=== PATIENT | male | born 1985 | race Caucasian/White ===

== ENCOUNTER 2017-05-22 07:10 | Emergency (ER) | payer MEDICAID, MEDICARE ==
[2017-05-22] MEDS ORDERED: NORMAL SALINE 1000 ML 1,000 ML IV ONE (07:36)
--- NOTE | 2017-05-22 07:42 | ER Document Report ---
ED GI/ - General Chief Complaint: Palpitations Stated Complaint: HEART RATE CONCERN Time Seen by Provider: 05/22/17 07:26 TRAVEL OUTSIDE OF THE [place] IN LAST 30 DAYS: No - Related Data Allergies/Adverse Reactions: Penicillins Allergy (Severe, Verified 07/03/15 11:32) Past Medical History - Social History Family History: Other Pulmonary Medical History: Reports: Hx Asthma Psychiatric Medical History: Reports: Hx Bipolar Disorder, Hx Schizophrenia - Immunizations Hx Diphtheria, Pertussis, Tetanus Vaccination: - known
--- NOTE | 2017-05-22 07:43 | ER Document Report ---
ED Psych Disorder / Suicide - General Mode of Arrival: Medic Information source: Patient TRAVEL OUTSIDE OF THE [place] IN LAST 30 DAYS: No <THAD ZARAGOZA - Last Filed: 05/22/17 08:12> <YAZMIN ANDERSON - Last Filed: 05/22/17 10:03> - General Chief Complaint: Palpitations Stated Complaint: HEART RATE CONCERN Time Seen by Provider: 05/22/17 07:26 Notes: Patient is a 31-year-old male who presents to the emergency department today with complaints of "high anxiety" which caused an elevated heart rate, and patient states he feels like his heart was beating "irregular and stopping". Patient states he drank a pint of rum last night because he was "in deep thought ". Patient does not really elaborate on this but he states that he had "very vivid thoughts". (THAD ZARAGOZA) - Related Data Allergies/Adverse Reactions: Penicillins Allergy (Severe, Verified 07/03/15 11:32) Past Medical History - General Information source: Patient - Social History Smoking Status: Never Smoker Cigarette use (# per day): No Frequency of alcohol use: None Drug Abuse: None Lives with: Family Family History: Reviewed & Not Pertinent, Other Pulmonary Medical History: Reports: Hx Asthma Psychiatric Medical History: Reports: Hx Bipolar Disorder, Hx Schizophrenia Surgical Hx: Negative - Immunizations Hx Diphtheria, Pertussis, Tetanus Vaccination: - known <THAD ZARAGOZA - Last Filed: 05/22/17 08:12> Review of Systems - Review of Systems Constitutional: No symptoms reported EENT: No symptoms reported Cardiovascular: See HPI, Heart racing Respiratory: No symptoms reported Gastrointestinal: No symptoms reported Genitourinary: No symptoms reported Male Genitourinary: No symptoms reported Musculoskeletal: No symptoms reported Skin: No symptoms reported Hematologic/Lymphatic: No symptoms reported Neurological/Psychological: See HPI, Anxiety -: Yes All other systems reviewed and negative <THAD ZARAGOZA - Last Filed: 05/22/17 08:12> Physical Exam <THAD ZARAGOZA - Last Filed: 05/22/17 08:12> <YAZMIN ANDERSON - Last Filed: 05/22/17 10:03> - Vital signs Vitals: Resp Pulse Ox 22 H 97 05/22/17 07:17 05/22/17 07:17 - Notes Notes: Physical Exam: General: Alert, appears well. HEENT: Normocephalic. Atraumatic. PERRL. Extraocular movements intact. Oropharynx clear. Neck: Supple. Non-tender. Respiratory: No respiratory distress. Clear and equal breath sounds bilaterally. Cardiovascular: Tachycardic, regular rhythm. Abdominal: Normal Inspection. Non-tender. No distension. Normal Bowel Sounds. Back: Non-tender. No deformity or step off. Extremities: Moves all four extremities. Upper extremities: Normal inspection. Normal ROM. Lower extremities: Normal inspection. No edema. Normal ROM. Neurological: Normal cognition. AAOx4. Normal speech. Psychological: Anxious. Skin: Warm. Dry. Normal color. (THAD ZARAGOZA) Course - Laboratory Result Diagrams: 05/22/17 07:42 05/22/17 07:42 <THAD ZARAGOZA - Last Filed: 05/22/17 08:12> - Laboratory Result Diagrams: 05/22/17 07:42 05/22/17 07:42 <YAZMIN ANDERSON - Last Filed: 05/22/17 10:03> - Re-evaluation Re-evalutation: 05/22/17 10:02 Patient's heart rate was down to 110. I went to talk with him about how he is feeling and his heart rate jumped up to 122. He states that he is feeling a little bit better. (YAZMIN ANDERSON) - Vital Signs Vital signs: Temp Pulse Resp BP Pulse Ox 22 H 98 05/22/17 09:00 05/22/17 09:00 - Laboratory Laboratory results interpreted by me: 05/22/17 07:42 Chloride 108 H Carbon Dioxide 19 L Discharge <THAD ZARAGOZA - Last Filed: 05/22/17 08:12> <YAZMIN ANDERSON - Last Filed: 05/22/17 10:03> - Discharge Clinical Impression: Tachycardia, Anxiety Condition: Stable Disposition: HOME, SELF-CARE Additional Instructions: Anxiety The physician feels that some of your health problems are being caused by anxiety. Anxiety affects your health in many ways. Anxiety alone can cause palpitations, sweats, chest pains, abdominal pains, shortness of breath, and headaches. It contributes to ulcer disease, high blood pressure, irritable bowel syndrome, and has been shown to cause flare-ups of many other diseases. Anxiety is not a simple disorder to treat. If the anxiety is due to recent life stresses, you may simply need time to "work through" the changes. If the anxiety is due to an underlying unhappiness with yourself or due to psychiatric disturbance, professional help will be needed. Your physician can refer you for further help if needed. Anti-anxiety medication is occasionally given if the stress is acute or if you are having trouble sleeping. Chronic or frequent use of these medications is not a good idea because the body becomes reliant on it, preventing you from dealing with life's normal stresses. RETURN TO THE EMERGENCY ROOM IF ANY NEW OR WORSENING SYMPTOMS. Scribe Attestation: 05/22/17 10:03 I personally performed the services described in the documentation, reviewed and edited the documentation which was dictated to the scribe in my presence, and it accurately records my words and actions. (YAZMIN ANDERSON) Scribe Documentation - Scribe Written by Delia:: Delia Castaneda, 05/22/2017 0838 acting as scribe for :: Ryan <THAD ZARAGOZA - Last Filed: 05/22/17 08:12>
[2017-05-22] MEDS ORDERED: DIPHENHYDRAMINE HCL 50 MG/ML VIAL IV ONE (07:48)
[2017-05-22 07:58] LABS: ABSOLUTE BASOPHILS # (AUTO) 0.1 10^3/uL (0.0-0.2); ABSOLUTE EOSINOPHILS # (AUTO) 0.1 10^3/uL (0.0-0.6); ABSOLUTE LYMPHOCYTES (AUTO) 1.8 10^3/uL (0.5-4.7); ABSOLUTE MONOCYTES (AUTO) 0.4 10^3/uL (0.1-1.4); ABSOLUTE NEUT (AUTO) 4.3 10^3/uL (1.7-8.2); EOSINOPHILS % (AUTO) 0.9 % (0-6); HEMATOCRIT 43.5 % (37.9-51.0); HEMOGLOBIN 15.3 g/dL (13.5-17.0); HGB HCT DIFFERENCE 2.4; LYMPHOCYTES % (AUTO) 26.8 % (13-45); MEAN CORPUSCULAR HEMOGLOBIN 29.5 pg (27.0-33.4); MEAN CORPUSCULAR HGB CONC 35.1 g/dL (32.0-36.0); MEAN CORPUSCULAR VOLUME 84 fl (80-97); MONOCYTES % (AUTO) 5.9 % (3-13); RED BLOOD COUNT 5.19 10^6/uL (4.35-5.55); SEGMENTED NEUTROPHILS % (AUTO) 65.4 % (42-78); WHITE BLOOD COUNT 6.6 10^3/uL (4.0-10.5)
--- NOTE | 2017-05-22 08:06 | EKG REPORT ---
SEVERITY:- BORDERLINE ECG - SINUS TACHYCARDIA BORDERLINE T ABNORMALITIES, DIFFUSE LEADS : Confirmed by: Orion Bright MD 22-May-2017 08:04:53
[2017-05-22 08:14] LABS: ALANINE AMINOTRANSFERASE 65 U/L (21-72); ALBUMIN 4.4 g/dL (3.5-5.0); ALKALINE PHOSPHATASE 54 U/L (38-126); ANION GAP 16 (5-19); ASPARTATE AMINO TRANSFERASE 29 U/L (17-59); BILIRUBIN,DIRECT 0.4 mg/dL (0.0-0.4); BILIRUBIN,TOTAL 0.4 mg/dL (0.2-1.3); BLOOD UREA NITROGEN 10 mg/dL (7-20); CALCIUM 10.2 mg/dL (8.4-10.2); CARBON DIOXIDE 19 mmol/L (22-30); CHLORIDE 108 mmol/L (98-107); CREATININE RESULT 1.17 mg/dL (0.52-1.25); GLUCOSE 96 mg/dL (75-110); POTASSIUM 3.9 mmol/L (3.6-5.0); TOTAL PROTEIN 6.7 g/dL (6.3-8.2)
[2017-05-22 08:15] LABS: ALCOHOL < 10 mg/dL (NONE DETECTED)
[2017-05-22 08:17] LABS: APPEARANCE,URINE CLEAR; BILIRUBIN,URINE NEGATIVE (NEGATIVE); GLUCOSE, URINE NEGATIVE (NEGATIVE); KETONES,URINE NEGATIVE (NEGATIVE); LEUKOCYTE ESTERASE,URINE NEGATIVE (NEGATIVE); NITRITE,URINE NEGATIVE (NEGATIVE); PROTEIN,URINE NEGATIVE (NEGATIVE); URINE SPECIFIC GRAVITY 1.001; UROBILINOGEN,URINE NEGATIVE mg/dL (<2.0)
[2017-05-22 08:32] LABS: URINE BARBITURATES SCREEN NEGATIVE; URINE METHADONE SCREEN NEGATIVE; URINE OPIATES LOW NEGATIVE; URINE PHENCYCLIDINE SCREEN NEGATIVE
[2017-05-22 10:26] VITALS: BP 130/96
== END 2017-05-22 10:27 | disposition home or self-care (01) ==
LOC: ER 07:10
DX: F41.9 Anxiety disorder, unspecified (principal); R00.0 Tachycardia, unspecified; J45.909 Unspecified asthma, uncomplicated; Z88.0 Allergy status to penicillin
CPT/HCPCS: 93005; 99285; 96361; 96374; 36415; 80307 ×2; 85025; 80053; 81001; 93010; J1200; J7030

== ENCOUNTER 2017-06-21 04:24 | Emergency (ER) | payer MEDICARE, OTHER ==
[2017-06-21] MEDS ORDERED: NORMAL SALINE 1000 ML 1,000 ML IV ONE (05:33)
--- NOTE | 2017-06-21 05:34 | ER Document Report ---
ED Medical Screen (RME) - General Chief Complaint: Chest Pain Stated Complaint: CHEST PAIN Time Seen by Provider: 06/21/17 05:27 Mode of Arrival: Ambulatory Information source: Patient Notes: Patient reports anterior chest pain that started around 8 PM last night and has been off and on. Patient denies any cough or cold symptoms. Patient denies any dyspnea. Patient denies any nausea or vomiting. Patient denies any previous history of DVT or PE in the past. hx: Schizoaffective TRAVEL OUTSIDE OF THE [place] IN LAST 30 DAYS: No - Related Data Allergies/Adverse Reactions: Penicillins Allergy (Severe, Verified 07/03/15 11:32) Past Medical History - Social History Chew tobacco use (# tins/day): No Frequency of alcohol use: Occasional Drug Abuse: None Pulmonary Medical History: Reports: Hx Asthma Renal/ Medical History: Denies: Hx Peritoneal Dialysis Psychiatric Medical History: Reports: Hx Bipolar Disorder, Hx Schizophrenia - Immunizations Hx Diphtheria, Pertussis, Tetanus Vaccination: - known Physical Exam - Vital signs Vitals: Temp Pulse Resp BP Pulse Ox 97.8 F 117 H 16 135/99 H 100 06/21/17 04:43 06/21/17 04:43 06/21/17 04:43 06/21/17 04:43 06/21/17 04:43 - Respiratory Respiratory status: No respiratory distress Chest status: Tender Breath sounds: Normal - Cardiovascular Rhythm: Tachycardia Heart sounds: S1 appreciated, S2 appreciated Course - Vital Signs Vital signs: Temp Pulse Resp BP Pulse Ox 97.8 F 117 H 16 135/99 H 100 06/21/17 04:43 06/21/17 04:43 06/21/17 04:43 06/21/17 04:43 06/21/17 04:43 Doctor's Discharge - Discharge Referrals: NIKUNJ BANKS FNP-C [Primary Care Provider] - Follow up as needed
[2017-06-21 06:19] LABS: ABSOLUTE BASOPHILS # (AUTO) 0.1 10^3/uL (0.0-0.2); ABSOLUTE EOSINOPHILS # (AUTO) 0.3 10^3/uL (0.0-0.6); ABSOLUTE LYMPHOCYTES (AUTO) 3.3 10^3/uL (0.5-4.7); ABSOLUTE MONOCYTES (AUTO) 0.6 10^3/uL (0.1-1.4); EOSINOPHILS % (AUTO) 3.3 % (0-6); HEMATOCRIT 43.2 % (37.9-51.0); HEMOGLOBIN 15.2 g/dL (13.5-17.0); HGB HCT DIFFERENCE 2.4; LYMPHOCYTES % (AUTO) 31.9 % (13-45); MEAN CORPUSCULAR HEMOGLOBIN 29.3 pg (27.0-33.4); MEAN CORPUSCULAR HGB CONC 35.1 g/dL (32.0-36.0); MEAN CORPUSCULAR VOLUME 83 fl (80-97); MONOCYTES % (AUTO) 6.1 % (3-13); RED BLOOD COUNT 5.19 10^6/uL (4.35-5.55); RED CELL DISTRIBUTION WIDTH 13.6 % (11.5-14.0); SEGMENTED NEUTROPHILS % (AUTO) 57.7 % (42-78); WHITE BLOOD COUNT 10.5 10^3/uL (4.0-10.5)
[2017-06-21 06:32] LABS: ALANINE AMINOTRANSFERASE 67 U/L (21-72); ALBUMIN 4.6 g/dL (3.5-5.0); ALKALINE PHOSPHATASE 59 U/L (38-126); ANION GAP 14 (5-19); ASPARTATE AMINO TRANSFERASE 42 U/L (17-59); BILIRUBIN,DIRECT 0.4 mg/dL (0.0-0.4); BILIRUBIN,TOTAL 0.4 mg/dL (0.2-1.3); BLOOD UREA NITROGEN 11 mg/dL (7-20); CALCIUM 10.2 mg/dL (8.4-10.2); CARBON DIOXIDE 19 mmol/L (22-30); CHLORIDE 114 mmol/L (98-107); CREATINE KINASE 98 U/L (55-170); CREATININE RESULT 1.25 mg/dL (0.52-1.25); GLUCOSE 101 mg/dL (75-110); MAGNESIUM 1.7 mg/dL (1.6-2.3); POTASSIUM 3.7 mmol/L (3.6-5.0); SODIUM 147.4 mmol/L (137-145); TOTAL PROTEIN 7.5 g/dL (6.3-8.2)
--- NOTE | 2017-06-21 06:38 | RADIOLOGY REPORT (SQ) ---
EXAM DESCRIPTION: CHEST PA/LAT COMPLETED DATE/TIME: 06/21/2017 6:19 am REASON FOR STUDY: cp COMPARISON: 07/03/2015. EXAM PARAMETERS: NUMBER OF VIEWS: two views TECHNIQUE: Digital Frontal and Lateral radiographic views of the chest acquired. RADIATION DOSE: NA LIMITATIONS: none FINDINGS: LUNGS AND PLEURA: No opacities, masses or pneumothorax. No pleural effusion. MEDIASTINUM AND HILAR STRUCTURES: No masses or contour abnormalities. HEART AND VASCULAR STRUCTURES: Heart normal size. No evidence for failure. BONES: No acute findings. HARDWARE: None in the chest. OTHER: No other significant finding. IMPRESSION: NO SIGNIFICANT RADIOGRAPHIC FINDING IN THE CHEST. TECHNICAL DOCUMENTATION: JOB ID: [id number] [employer]- All Rights Reserved
[2017-06-21 06:45] LABS: TROPONIN I < 0.012 ng/mL
--- NOTE | 2017-06-21 07:08 | ER Document Report ---
ED General <YAZMIN ANDERSON - Last Filed: 06/21/17 07:10> - General Mode of Arrival: Ambulatory Information source: Patient TRAVEL OUTSIDE OF THE [place] IN LAST 30 DAYS: No <THAD ZARAGOZA - Last Filed: 06/21/17 07:27> - General Chief Complaint: Chest Pain Stated Complaint: CHEST PAIN Time Seen by Provider: 06/21/17 05:27 Notes: Patient is a 31 year old male that presents to the emergency department today with complaints of anxiety associated with EtOH consumption. Patient has been seen in the past with similar symptoms. Patient states he only had a few sips today and had the same type of reaction. Patient states he "did not even feel drunk" but had anxiety. Patient states he is back to normal now and wishes to go home. (THAD ZARAGOZA) - Related Data Allergies/Adverse Reactions: Penicillins Allergy (Severe, Verified 07/03/15 11:32) Past Medical History - General Information source: Patient - Social History Smoking Status: Current Every Day Smoker Cigarette use (# per day): Yes Chew tobacco use (# tins/day): No Frequency of alcohol use: Occasional Drug Abuse: None Lives with: Family Family History: Reviewed & Not Pertinent, Other Patient has suicidal ideation: No Patient has homicidal ideation: No Pulmonary Medical History: Reports: Hx Asthma Psychiatric Medical History: Reports: Hx Bipolar Disorder, Hx Schizophrenia Surgical Hx: Negative - Immunizations Hx Diphtheria, Pertussis, Tetanus Vaccination: - known <THAD ZARAGOZA - Last Filed: 06/21/17 07:27> Review of Systems - Review of Systems Constitutional: No symptoms reported EENT: No symptoms reported Cardiovascular: No symptoms reported Respiratory: No symptoms reported Gastrointestinal: No symptoms reported Genitourinary: No symptoms reported Male Genitourinary: No symptoms reported Musculoskeletal: No symptoms reported Skin: No symptoms reported Hematologic/Lymphatic: No symptoms reported Neurological/Psychological: No symptoms reported -: Yes All other systems reviewed and negative <THAD ZARAGOZA - Last Filed: 06/21/17 07:27> Physical Exam <YAZMIN ANDERSON - Last Filed: 06/21/17 07:10> <THAD ZARAGOZA - Last Filed: 06/21/17 07:27> - Vital signs Vitals: Temp Pulse Resp BP Pulse Ox 97.8 F 117 H 16 135/99 H 100 06/21/17 04:43 06/21/17 04:43 06/21/17 04:43 06/21/17 04:43 06/21/17 04:43 - Notes Notes: Physical Exam: General: Alert, appears well. HEENT: Normocephalic. Atraumatic. PERRLA. Extraocular movements intact. Oropharynx clear. Neck: Supple. Respiratory: No respiratory distress. Abdominal: Normal Inspection. No distension. Extremities: Moves all four extremities. Neurological: Normal cognition. AAOx4. Normal speech. Psychological: Odd affect. Normal mood. Skin: Warm. Dry. Normal color. (THAD ZARAGOZA) Course - Laboratory Result Diagrams: 06/21/17 06:00 06/21/17 06:00 - EKG Interpretation by Nm EKG shows normal: Sinus rhythm, [place], Intervals, QRS Complexes. abnormal: ST-T Waves - Borderline inferior T abnormalities Rate: Tachycardia - 112 When compared to previous EKG there are: No significant change <YAZMIN ANDERSON - Last Filed: 06/21/17 07:10> - Laboratory Result Diagrams: 06/21/17 06:00 06/21/17 06:00 <THAD ZARAGOZA - Last Filed: 06/21/17 07:27> - Vital Signs Vital signs: Temp Pulse Resp BP Pulse Ox 97.8 F 117 H 26 H 125/96 H 97 06/21/17 04:43 06/21/17 04:43 06/21/17 06:26 06/21/17 06:26 06/21/17 06:26 - Laboratory Laboratory results interpreted by me: 06/21/17 06:00 Sodium 147.4 H Chloride 114 H Carbon Dioxide 19 L Discharge <YAZMIN ANDERSON - Last Filed: 06/21/17 07:10> <THAD ZARAGOZA - Last Filed: 06/21/17 07:27> - Discharge Clinical Impression: Anxiety, Bipolar 1 disorder Chest pain Qualifiers: Chest pain type: unspecified Qualified Code(s): R07.9 - Chest pain, unspecified Schizophrenia Qualifiers: Schizophrenia type: unspecified Qualified Code(s): F20.9 - Schizophrenia, unspecified Additional Instructions: Your symptoms of chest pain and anxiety seem to have been triggered by drinking alcohol. This seems to occur frequently when you drink alcohol. It would be best if you abstain from alcohol in the future due to the adverse effects she seemed to experience. Follow-up with your doctor this week as needed. Referrals: NIKUNJ BANKS, [facility] [Primary Care Provider] - Follow up as needed Scribe Attestation: 06/21/17 07:09 I personally performed the services described in the documentation, reviewed and edited the documentation which was dictated to the scribe in my presence, and it accurately records my words and actions. (YAZMIN ANDERSON) Scribe Documentation - Scribe Written by Moibe:: Delia Castaneda, 06/21/2017 0727 acting as scribe for :: Ryan <THAD ZARAGOZA - Last Filed: 06/21/17 07:27>
[2017-06-21 07:30] VITALS: BP 125/99
--- NOTE | 2017-06-21 08:43 | EKG REPORT ---
SEVERITY:- BORDERLINE ECG - SINUS TACHYCARDIA BORDERLINE T ABNORMALITIES, INFEROLATERAL LEADS : Confirmed by: Orion Bright MD 21-Jun-2017 08:42:58
== END 2017-06-21 07:30 | disposition home or self-care (01) ==
LOC: ER 04:24
DX: F41.9 Anxiety disorder, unspecified (principal); R07.9 Chest pain, unspecified; F20.9 Schizophrenia, unspecified; F31.9 Bipolar disorder, unspecified; F17.210 Nicotine dependence, cigarettes, uncomplicated; J45.909 Unspecified asthma, uncomplicated; R00.0 Tachycardia, unspecified; Z88.0 Allergy status to penicillin
CPT/HCPCS: 93005; 99285; 96360; 36415; 82553; 82550; 83735; 84443; 85025; 80053; 84484; 71020; 93010; J7030

== ENCOUNTER → 2017-09-23 | Outpatient (CLI) | payer MEDICARE, MEDICAID ==
[2017-09-23 18:07] LABS: ABSOLUTE BASOPHILS # (AUTO) 0.1 10^3/uL (0.0-0.2); ABSOLUTE EOSINOPHILS # (AUTO) 0.2 10^3/uL (0.0-0.6); ABSOLUTE LYMPHOCYTES (AUTO) 3.5 10^3/uL (0.5-4.7); ABSOLUTE MONOCYTES (AUTO) 0.5 10^3/uL (0.1-1.4); ABSOLUTE NEUT (AUTO) 3.4 10^3/uL (1.7-8.2); EOSINOPHILS % (AUTO) 3.2 % (0-6); HEMATOCRIT 45.6 % (37.9-51.0); HEMOGLOBIN 15.9 g/dL (13.5-17.0); LYMPHOCYTES % (AUTO) 45.3 % (13-45); MEAN CORPUSCULAR HEMOGLOBIN 29.6 pg (27.0-33.4); MEAN CORPUSCULAR HGB CONC 34.9 g/dL (32.0-36.0); MEAN CORPUSCULAR VOLUME 85 fl (80-97); MONOCYTES % (AUTO) 6.2 % (3-13); PLATELET COUNT 301 10^3/uL (150-450); RED BLOOD COUNT 5.38 10^6/uL (4.35-5.55); RED CELL DISTRIBUTION WIDTH 13.2 % (11.5-14.0); SEGMENTED NEUTROPHILS % (AUTO) 44.3 % (42-78); TOTAL CELLS COUNTED % (AUTO) 100 %; WHITE BLOOD COUNT 7.7 10^3/uL (4.0-10.5)
[2017-09-23 18:30] LABS: ANION GAP 13 (5-19); BLOOD UREA NITROGEN 10 mg/dL (7-20); CALCIUM 10.3 mg/dL (8.4-10.2); CARBON DIOXIDE 21 mmol/L (22-30); CHLORIDE 110 mmol/L (98-107); GLUCOSE 85 mg/dL (75-110); PHOSPHORUS 3.4 mg/dL (2.5-4.5); SODIUM 144.1 mmol/L (137-145); URIC ACID 7.7 mg/dL (3.5-8.5)
== END ==
LOC: OD 17:27
PROVIDERS: ATTEND Urology
DX: N20.0 Calculus of kidney (principal)
CPT/HCPCS: 36415; 80048; 83735; 83970; 84100; 84550; 85025

== ENCOUNTER 2017-12-10 19:16 | Emergency (ER) | payer MEDICARE, MEDICAID ==
--- NOTE | 2017-12-10 22:36 | ER Document Report ---
ED Cardiac - General Chief Complaint: Chest Pressure Stated Complaint: CHEST PAIN Time Seen by Provider: 12/10/17 22:11 Notes: Patient states that he has intermittent anxiety. On appropriate psychiatric medication for his chronic psychiatric problems. States that every now and then he will have palpitations and associated with anxiety. Has been taking clonazepam but has run out about 3 days ago and now having more panic attacks. Currently he states that he comes to the ER to get everything checked out and that he gets to feeling normal again. Denies any hallucinations, no suicidal ideation. TRAVEL OUTSIDE OF THE [place] IN LAST 30 DAYS: No - HPI Patient complains to provider of: Chest pain, Palpitations - Related Data Allergies/Adverse Reactions: Penicillins Allergy (Severe, Verified 07/03/15 11:32) Past Medical History - General Information source: Patient - Social History Smoking Status: Current Some Day Smoker Cigarette use (# per day): Yes Frequency of alcohol use: None Drug Abuse: None Lives with: Family Family History: Reviewed & Not Pertinent, Other Patient has suicidal ideation: No Patient has homicidal ideation: No Pulmonary Medical History: Reports: Hx Asthma Renal/ Medical History: Denies: Hx Peritoneal Dialysis Psychiatric Medical History: Reports: Hx Bipolar Disorder, Hx Schizophrenia - Immunizations Hx Diphtheria, Pertussis, Tetanus Vaccination: - known Review of Systems - Review of Systems Constitutional: No symptoms reported EENT: No symptoms reported Cardiovascular: No symptoms reported, Palpitations, Heart racing. denies: Chest pain Respiratory: No symptoms reported Gastrointestinal: No symptoms reported Genitourinary: No symptoms reported Male Genitourinary: No symptoms reported Musculoskeletal: No symptoms reported Skin: No symptoms reported Hematologic/Lymphatic: No symptoms reported Neurological/Psychological: No symptoms reported, Anxiety Physical Exam - Vital signs Vitals: Temp Pulse Resp BP Pulse Ox 98.4 F 108 H 20 151/96 H 98 12/10/17 19:32 12/10/17 19:32 12/10/17 19:32 12/10/17 19:32 12/10/17 19:32 Interpretation: Normal - General General appearance: Appears well, Alert - HEENT Head: Normocephalic, Atraumatic Eyes: Normal Pupils: PERRL - Respiratory Respiratory status: No respiratory distress Chest status: Nontender Breath sounds: Normal Chest palpation: Normal - Cardiovascular Rhythm: Regular Heart sounds: Normal auscultation Murmur: No - Abdominal Inspection: Normal Distension: No distension Bowel sounds: Normal Tenderness: Nontender Organomegaly: No organomegaly - Back Back: Normal, Nontender - Extremities General upper extremity: Normal inspection, Nontender, Normal color, Normal ROM , Normal temperature General lower extremity: Normal inspection, Nontender, Normal color, Normal ROM , Normal temperature, Normal weight bearing. No: Brian's sign - Neurological Neuro grossly intact: Yes Cognition: Normal Orientation: AAOx4 [place] Coma Scale Eye Opening: Spontaneous Tasha Coma Scale Verbal: Oriented Tasha Coma Scale Motor: Obeys Commands Tasha Coma Scale Total: 15 Speech: Normal Motor strength normal: LUE, RUE, LLE, RLE Sensory: Normal - Psychological Associated symptoms: Normal affect, Normal mood - Skin Skin Temperature: Warm Skin Moisture: Dry Skin Color: Normal Course - Re-evaluation Re-evalutation: 12/10/17 22:38 Patient does have a significant history of mental health disorder. Patient does not seem manic at this time. Has a clear train of thought. Good insight. Good judgment. States that he occasionally has anxiety followed by tachycardia. States that the only way to get tachycardia to stop his to come here in have someone tell him that he is okay. States that he has been taking clonazepam on a regular basis as well as all of his regular medications but ran out of clonazepam several days ago. More likely patient would benefit from being back on his clonazepam. Do not mind prescribing him a short course of it at this time. We will give him an initial dose. Will discuss with him the use of beta-blockers. He may benefit from using something like propranolol which crosses the blood-brain barrier and decreases a heart rate as well as causes some anxiolysis. he verbalized understanding these instructions. Patient will be discharged at this time stable condition. - Vital Signs Vital signs: Temp Pulse Resp BP Pulse Ox 97.6 F 89 16 132/87 H 100 12/10/17 23:37 12/10/17 23:37 12/10/17 23:37 12/10/17 23:37 12/10/17 23:37 - EKG Interpretation by Me EKG shows normal: [place], Intervals, QRS Complexes, ST-T Waves Rate: Tachycardia Discharge - Discharge Clinical Impression: Sinus tachycardia Condition: Good Disposition: HOME, SELF-CARE Instructions: Anxiety ([facility]), Sinus Tachycardia ([facility]) Additional Instructions: Please please discuss options with your doctor as we talked about. You may benefit from a medication called a beta-conner. Propranolol is often times used for people like yourself that have anxiety with tachycardia. This may be an option however we are not prescribing it for you today. Take your medications as prescribed. In the event he have any worsening symptoms please return. Prescriptions: Clonazepam 0.5 mg PO QHS 14 Days #14 tablet
[2017-12-10] MEDS ORDERED: CLONAZEPAM 1 MG TABLET PO ONE (22:38)
--- NOTE | 2017-12-10 23:23 | EKG REPORT ---
SEVERITY:- BORDERLINE ECG - SINUS TACHYCARDIA PROBABLE LEFT ATRIAL ABNORMALITY BORDERLINE T ABNORMALITIES, INFERIOR LEADS : Confirmed by: Aviva Bauman 10-Dec-2017 23:23:01
[2017-12-10 23:43] VITALS: BP 132/87
== END 2017-12-10 23:37 | disposition home or self-care (01) ==
LOC: ER 19:16
DX: R00.0 Tachycardia, unspecified (principal); R07.9 Chest pain, unspecified; F41.9 Anxiety disorder, unspecified; Z79.899 Other long term (current) drug therapy; F17.210 Nicotine dependence, cigarettes, uncomplicated
CPT/HCPCS: 93005; 99284; 93010; A9270

== ENCOUNTER 2019-03-20 18:01 | Emergency (ER) | payer MEDICARE, MEDICAID ==
[2019-03-20] MEDS ORDERED: DICYCLOMINE HCL 10 MG CAPSULE PO ONE (18:34)
[2019-03-20] MEDS ORDERED: NORMAL SALINE 1000 ML 1,000 ML IV ONE (18:37)
--- NOTE | 2019-03-20 18:37 | ER Document Report ---
ED Medical Screen (RME) - General Chief Complaint: Abdominal Pain Stated Complaint: SIDE PAIN Time Seen by Provider: 03/20/19 18:17 Notes: Patient is a 33-year-old male with a history of bipolar disorder and irritable bowel syndrome who presents emergency department with abdominal pain. He states that his pain is in his right lower quadrant. He states that it started this morning around 9:00 in the morning and describes it as a dull, aching pain. He states that he had diarrhea yesterday and that was when his last bowel movement was. He denies any nausea or vomiting. Exam: Very mildly tender right lower quadrant. No rebound tenderness noted. I have greeted and performed a rapid initial assessment of this patient. A comprehensive ED assessment and evaluation of the patient, analysis of test results and completion of medical decision making process will be conducted by an additional ED providers. TRAVEL OUTSIDE OF THE [place] IN LAST 30 DAYS: No - Related Data Allergies/Adverse Reactions: Penicillins Allergy (Severe, Verified 03/20/19 18:02) Past Medical History - Social History Frequency of alcohol use: None Drug Abuse: None Pulmonary Medical History: Reports: Hx Asthma Renal/ Medical History: Denies: Hx Peritoneal Dialysis Psychiatric Medical History: Reports: Hx Bipolar Disorder, Hx Schizophrenia - Immunizations Hx Diphtheria, Pertussis, Tetanus Vaccination: - known Physical Exam - Vital signs Vitals: Temp Pulse Resp BP Pulse Ox 98.2 F 92 24 H 131/97 H 98 03/20/19 18:07 03/20/19 18:07 03/20/19 18:07 03/20/19 18:07 03/20/19 18:07 Course - Vital Signs Vital signs: Temp Pulse Resp BP Pulse Ox 98.2 F 92 24 H 131/97 H 98 03/20/19 18:07 03/20/19 18:07 03/20/19 18:07 03/20/19 18:07 03/20/19 18:07
--- NOTE | 2019-03-20 19:00 | ER Document Report ---
ED General - General Chief Complaint: Abdominal Pain Stated Complaint: SIDE PAIN Time Seen by Provider: 03/20/19 18:17 Primary Care Provider: CHRISTOFER STORY PA-C [Primary Care Provider] - Follow up as needed TRAVEL OUTSIDE OF THE [place] IN LAST 30 DAYS: No - HPI Notes: 33-year-old male presents with abdominal pain. Patient describes gradual onset around 9 AM right lower and mid quadrant abdominal pain. Achy sharp and burning at times. Waxes and wanes but has not gone away. No nausea, vomiting, diarrhea. No recent antibiotic use. No fever, chills or sweats. No trauma. Moderate intensity, nonradiating. No other modifying factors, no other associated symptoms, no other provocative or palliative factors. - Related Data Allergies/Adverse Reactions: Penicillins Allergy (Severe, Verified 03/20/19 18:02) Past Medical History - Social History Smoking Status: Unknown if Ever Smoked Frequency of alcohol use: None Drug Abuse: None Family History: Reviewed & Not Pertinent, Other Patient has suicidal ideation: No Patient has homicidal ideation: No Pulmonary Medical History: Reports: Hx Asthma Renal/ Medical History: Denies: Hx Peritoneal Dialysis Psychiatric Medical History: Reports: Hx Bipolar Disorder, Hx Schizophrenia - Immunizations Hx Diphtheria, Pertussis, Tetanus Vaccination: - known Review of Systems - Review of Systems Notes: Review of systems as in the history of present illness, otherwise negative x 10 systems. Physical Exam - Vital signs Vitals: Temp Pulse Resp BP Pulse Ox 98.2 F 92 24 H 131/97 H 98 03/20/19 18:07 03/20/19 18:07 03/20/19 18:07 03/20/19 18:07 03/20/19 18:07 - Notes Notes: General: Well developed . HEENT: Normocephalic, atraumatic. Pupils equal round reactive to light. No JVD. Chest: No trauma. Respiratory: Good air exchange, normal excursion. Cardiac: Regular rhythm. No murmurs or gallops. Abdomen: Soft, nondistended. There is minimal right lower quadrant tenderness on distracted exam. No guarding, rigidity or rebound. Sounds. Back: No asymmetry or gross abnormality. Motor: Grossly normal power and tone. Neurologic: Alert, nonfocal. Cranial nerves II-12 are intact. Sensation intact. Vascular: Well perfused. Normal peripheral pulses. Skin: No petechiae or purpura. Course - Vital Signs Vital signs: Temp Pulse Resp BP Pulse Ox 98.2 F 92 24 H 131/97 H 98 03/20/19 18:07 03/20/19 18:07 03/20/19 18:07 03/20/19 18:07 03/20/19 18:07 - Laboratory Result Diagrams: 03/20/19 18:47 03/20/19 18:47 Laboratory results interpreted by me: 03/20/19 03/20/19 03/20/19 18:47 18:47 18:47 WBC 13.5 H RBC 5.56 H Absolute Neutrophils 9.4 H Creatinine 1.82 H Est GFR ( Amer) 53 L Est GFR (Non-Af Amer) 43 L Urine Protein 100 H Urine Blood LARGE H Ur Leukocyte Esterase TRACE H - Transfer of Care Notes: 03/20/19 18:58 Well-appearing 33-year-old male with abdominal pain. Broad differential diagnosis includes underlying biliary, hepatic or other etiologies. Consider atypical gastritis peptic ulcer disease. Would consider appendicitis, less likely diverticulitis given age and risk factor profile. Patient is a very benign abdomen, no fever, no associated vomiting or nausea. At this point going to proceed with serial examination. Will reassess after labs and medications. Patient was evaluated by the [facility] provider prior to my evaluation. Studies / interventions have been ordered by this provider and are currently pending. 03/20/19 19:22 Patient has continued pain. Leukocytosis is noted on labs. Given the increased possibility of appendicitis, will proceed with CT imaging. 03/20/19 20:48 CT imaging shows a large 1.2 cm right ureteral stone with hydro-. Patient wants to his ED course and is resting comfortably with actually improved pain. He has an established urologist would like to follow-up with them. He is discharged home with a prescription for oral analgesics, antiemetics, will return emergently for fever or worsening pain. Discharge - Discharge Clinical Impression: Renal colic on right side Condition: Stable Disposition: HOME, SELF-CARE Instructions: Kidney Stone ([facility]) Additional Instructions: Follow-up with your urologist in 1 or 2 days as discussed Prescriptions: Hydrocodone/Acetaminophen [Vicodin 5-300 mg Tablet] 1 each PO Q6 #12 tablet Ondansetron [Zofran Odt 4 mg Tablet] 1 - 2 tab PO Q4H PRN #15 tab.rapdis PRN Reason: For Nausea/Vomiting Referrals: CHRISTOFER STORY PA-C [Primary Care Provider] - Follow up as needed [facility] [Provider Group] - Follow up in 3-5 days
[2019-03-20 19:06] LABS: ABSOLUTE BASOPHILS # (AUTO) 0.1 10^3/uL (0.0-0.2); ABSOLUTE EOSINOPHILS # (AUTO) 0.3 10^3/uL (0.0-0.6); ABSOLUTE LYMPHOCYTES (AUTO) 2.8 10^3/uL (0.5-4.7); ABSOLUTE MONOCYTES (AUTO) 0.9 10^3/uL (0.1-1.4); ABSOLUTE NEUT (AUTO) 9.4 10^3/uL (1.7-8.2); BASOPHILS % (AUTO) 0.6 % (0-2); HEMATOCRIT 47.4 % (37.9-51.0); HEMOGLOBIN 16.5 g/dL (13.5-17.0); MEAN CORPUSCULAR HEMOGLOBIN 29.6 pg (27.0-33.4); MEAN CORPUSCULAR HGB CONC 34.8 g/dL (32.0-36.0); MEAN CORPUSCULAR VOLUME 85 fl (80-97); MONOCYTES % (AUTO) 6.6 % (3-13); PLATELET COUNT 274 10^3/uL (150-450); RED BLOOD COUNT 5.56 10^6/uL (4.35-5.55); RED CELL DISTRIBUTION WIDTH 13.5 % (11.5-14.0); SEGMENTED NEUTROPHILS % (AUTO) 69.8 % (42-78); TOTAL CELLS COUNTED % (AUTO) 100 %; WHITE BLOOD COUNT 13.5 10^3/uL (4.0-10.5)
[2019-03-20 19:10] LABS: APPEARANCE,URINE SLIGHTLY-CLOUDY; BILIRUBIN,URINE NEGATIVE (NEGATIVE); CALCIUM OXALATE CRYSTALS,URINE FEW /HPF; COLOR,URINE YELLOW; GLUCOSE, URINE NEGATIVE (NEGATIVE); KETONES,URINE NEGATIVE (NEGATIVE); LEUKOCYTE ESTERASE,URINE TRACE (NEGATIVE); NITRITE,URINE NEGATIVE (NEGATIVE); PROTEIN,URINE 100 mg/dL (NEGATIVE); UROBILINOGEN,URINE NEGATIVE mg/dL (<2.0)
[2019-03-20 19:24] LABS: ALKALINE PHOSPHATASE 55 U/L (38-126); ANION GAP 13 (5-19); ASPARTATE AMINO TRANSFERASE 35 U/L (17-59); BILIRUBIN,DIRECT 0.3 mg/dL (0.0-0.4); BILIRUBIN,TOTAL 0.7 mg/dL (0.2-1.3); BLOOD UREA NITROGEN 14 mg/dL (7-20); CALCIUM 10.2 mg/dL (8.4-10.2); CARBON DIOXIDE 22 mmol/L (22-30); CHLORIDE 104 mmol/L (98-107); GLUCOSE 95 mg/dL (75-110); TOTAL PROTEIN 7.8 g/dL (6.3-8.2)
[2019-03-20] MEDS ORDERED: RINGERS SOLUTION,LACTATED 1,000 ML IV ONE (19:45)
--- NOTE | 2019-03-20 20:21 | RADIOLOGY REPORT (SQ) ---
EXAM DESCRIPTION: CT ABDOMEN PELVIS WITH IV CONTRAST COMPLETED DATE/TME: 03/20/2019 19:16 CLINICAL HISTORY: RLQ pain, COMPARISON: None Available. TECHNIQUE: CT of the abdomen and pelvis performed following IV administration of 100 mL of Omnipaque 300. DLP: 1929.03 mGycm FINDINGS: Lung Bases: The visualized lung bases are clear. Bones: No destructive bone lesions identified. Abdomen: Liver: The liver has normal size and decreased density. No intrahepatic mass or biliary dilatation. Gallbladder: No calcified gallstones. Spleen, Pancreas, and Adrenal Glands: The spleen, pancreas, and adrenal glands are unremarkable. Kidneys: There is a 1.2 cm obstructing calculus in the proximal right ureter producing moderate right hydroureter and hydronephrosis. Punctate nonobstructing bilateral nephrolithiasis. No left-sided hydronephrosis. Right perinephric fat stranding. Vasculature: The aorta and IVC have normal caliber and position. The portal vein is patent. The proximal visceral and renal arteries are patent. Stomach: The stomach and duodenum have normal course. Other: No free intraperitoneal air. Fat-containing umbilical hernia. No free fluid or lymphadenopathy. Pelvis: Bladder: Urinary bladder is unremarkable. Bowel: No dilated loops of large or small bowel. Scattered diverticula of the colon. Appendix: Normal appendix. Pelvis: Prostate is not enlarged. IMPRESSION: 1. There is a 1.2 cm obstructing calculus in the proximal right ureter producing moderate right hydroureter and hydronephrosis. 2. Punctate bilateral nonobstructing nephrolithiasis. 3. Diverticulosis without evidence of acute diverticulitis. 4. Hepatic steatosis. This exam was performed according to our departmental dose-optimization program, which includes automated exposure control, adjustment of the mA and/or kV according to patient size and/or use of iterative reconstruction technique.
[2019-03-20 21:26] VITALS: BP 128/90
== END 2019-03-20 21:26 | disposition home or self-care (01) ==
LOC: ER 18:01
DX: N23 Unspecified renal colic (principal); R10.31 Right lower quadrant pain; Z88.0 Allergy status to penicillin
CPT/HCPCS: 99284; 96360; 96361; 36415; 85025; 80053; 81001; 74177; A9270; J7030; J7120; J3490

== ENCOUNTER → 2019-04-14 | Outpatient (CLI) | payer MEDICARE, MEDICAID ==
--- NOTE | 2019-04-14 12:35 | RADIOLOGY REPORT (SQ) ---
EXAM DESCRIPTION: CT ABD/PELVIS NO ORAL OR IV COMPLETED DATE/TIME: 04/14/2019 12:03 pm REASON FOR STUDY: N20.0 CALCULUS OF KIDNEY N20.0 CALCULUS OF KIDNEY COMPARISON: 03/20/2019 TECHNIQUE: CT scan of the abdomen and pelvis performed without intravenous or oral contrast. Images reviewed with lung, soft tissue, and bone windows. Reconstructed coronal and sagittal MPR images revi ewed. All images stored on PACS. All CT scanners at this facility use dose modulation, iterative reconstruction, and/or weight based d osing when appropriate to reduce radiation dose to as low as reasonably achievable (ALARA). [facility]: Dose Right [facility]: CareDose [facility]: Dose Right [facility]: Teradose 4D [facility]: [employer] RADIATION DOSE: CT Rad equipment meets quality standard of care and radiation dose reduction techniq ues were employed. CTDIvol: 12.6 mGy. DLP: 727 mGy-cm.mGy. LIMITATIONS: None. FINDINGS: LOWER CHEST: No significant findings. No nodules or infiltrates. NON-CONTRASTED LIVER, SPLEEN, ADRENALS: Evaluation limited by lack of IV contrast. No identified sign ificant masses. PANCREAS: No masses. No peripancreatic inflammatory changes. GALLBLADDER: No identified stones by CT criteria. No inflammatory changes to suggest cholecystitis. RIGHT KIDNEY AND URETER: No suspicious masses. Assessment limited by lack of IV contrast. 1.2 cm le eddie in the distal right ureter. This has moved distally since prior study. It remains 3.5 to 4 cm above the right UVJ. Hounsfield units measure just over 1,000. Persistent moderate right-sided hyd ronephrosis and hydroureter. LEFT KIDNEY AND URETER: No suspicious masses. Assessment limited by lack of IV contrast. Small stab le nonobstructing left renal calculi. No hydronephrosis or hydroureter. AORTA AND RETROPERITONEUM: No aneurysm. No retroperitoneal masses or adenopathy. BOWEL AND PERITONEAL CAVITY: No obvious masses or inflammatory changes. No free fluid. APPENDIX: Normal. PELVIS, BLADDER, AND ABDOMINAL WALL:No abnormal masses. No free fluid. Bladder normal. BONES: No significant findings. OTHER: No other significant finding. IMPRESSION: Approximately 1.2 cm right ureteral stone is again noted it has moved slightly distally. Is still remains 3.5 to 4 cm above the UVJ. Persistent moderate right-sided hydronephrosis and hyd roureter. COMMENT: Quality ID # [id number]: Final reports with documentation of one or more dose reduction techniques (e.g., Automated exposure control, adjustment of the mA and/or kV according to patient size, use of iterative reconstruction technique) TECHNICAL DOCUMENTATION: JOB ID: [id number] [employer]- All Rights Reserved Reading location - IP/workstation name: [email or web address]
== END ==
LOC: RAD 11:47
PROVIDERS: ATTEND Urology
DX: N13.30 Unspecified hydronephrosis (principal); N23 Unspecified renal colic; N20.1 Calculus of ureter
CPT/HCPCS: 74176